=== PATIENT | male | born 1965 | race Caucasian/White ===

== ENCOUNTER 2017-04-06 10:57 | Emergency (ER) | payer BC ==
--- NOTE | ~2017-04-06 | CT2 ---
[facility]. [facility] A Service of [facility] RADIOLOGY TEXT RESULTS PATIENT: MARI WALKER LOCATION: SED : 65 UNIT #: [id number] AGE: [address]: Shay Strange MD SEX: M ORDER DR: [id number] [place] [id number] MR#: [id number] #: [id number] NAME: MARI WALKER : 1965 SEX: M STUDY DATE/TIME: 04/06/2017 12:51 UNIT: SED ROOM: STUDY DESCRIPTION: CT Abd and Pelv W Cont Attending Physician: Shay Strange M.D. Ordering Physician: Shay Strange M.D. MEDICAL IMAGING REPORT This report is preliminary unless electronic signature is present. EXAM CT abdomen and pelvis with contrast HISTORY Abdominal cramping since Monday 3 days ago. Blood in stools, lower abdominal pain. FINDINGS Axial images performed through the abdomen and pelvis following IV contrast. 100 mL Isovue-370 injected. Multiplanar reconstructions. Abdomen: Lung bases unremarkable except for minimal atelectasis. Liver, spleen and gallbladder appear normal. Pancreas, kidneys and adrenal glands unremarkable. No free air or free fluid. Stomach, small bowel unremarkable. There is a focal colonic thickening involving the sigmoid colon over at least a 12 cm length but more prominent over about a 6 cm length. There is an adjacent diverticular changes. Findings most concerning for acute diverticulitis. There is a moderate amount of pericolonic inflammatory change but no evidence of abscess. Appendix is normal. Retroperitoneum unremarkable. Pelvis: Bladder and prostate appear normal. Osseous structures and soft tissues unremarkable. IMPRESSION Focal colonic wall thickening involving the sigmoid colon over at least a 6 cm length and may involve the greater segment of close to 12 cm. In the setting of diverticular changes. Findings most concerning for acute diverticulitis. No perforation or abscess. Recommend clinical follow up to resolution. [facility] A Service of [facility] RADIOLOGY TEXT RESULTS PATIENT: MARI WALKER LOCATION: SED : 65 UNIT #: [id number] AGE: [address]: Shay Strange MD SEX: M ORDER DR: Dictated by... Debbie Quinones M.D. THIS IS AN ELECTRONICALLY VERIFIED REPORT Debbie Quinones M.D. at 04/07/2017 5:03 PM David TD: 04/06/2017 19:14 JOB #: [id number] MEDICAL IMAGING REPORT Page 1 of 1
[2017-04-06 12:07] LABS: BASOPHIL% 0.2 % (0-2.5); EOSINOPHIL% 0.2 % (0.0-7.0); HEMATOCRIT 44.2 % (38.0-50.0); HEMOGLOBIN 15.4 gm/dL (13.0-16.0); LYMPHOCYTE# 0.7 X10e3 (1.0-3.5); LYMPHOCYTE% 7.1 % (17.0-45.0); MEAN CELL VOLUME 86.4 FL (83-96); MEAN CORPUSCULAR HGB CONC 34.7 g/dL (30-36); MEAN PLATELET VOLUME 6.9 FL (6.5-11.5); MONOCYTE# 1.2 X10e3 (0-1.0); MONOCYTE% 11.2 % (3.0-12.0); NEUTROPHIL# 8.4 X10e3 (1.5-7.1); NEUTROPHIL% 81.3 % (40-75); PLATELET COUNT 227 X10e3 (140-420); RED BLOOD COUNT 5.12 X10e (3.90-5.60); RED CELL DISTRIBUTION WIDTH 12.6 % (11.0-15.5); WHITE BLOOD COUNT 10.3 X10e3 (4.0-10.5)
[2017-04-06 12:08] LABS: DIFF IND NO; MICRO INDICATED? NO; URINE APPEARANCE CLEAR; URINE BILIRUBIN NEG (NEG); URINE BLOOD NEG (NEG); URINE COLOR YELLOW; URINE GLUCOSE NEG (NORM); URINE KETONE NEG (NEG); URINE LEUKOCYTE ESTERASE NEG (NEG); URINE NITRATE NEG (NEG); URINE PH 5.5 (5-8); URINE PROTEIN NEG (NEG); URINE SOURCE CLEAN CATCH; URINE SPECIFIC GRAVITY >=1.030 (1.003-1.035)
[2017-04-06 12:30] LABS: ALBUMIN SERUM 4.2 g/dL (3.5-5.0); BILIRUBIN, DIRECT 0.1 mg/dL (0.0-0.2); BILIRUBIN,INDIRECT 1.3 mg/dL (0.0-0.9); BILIRUBIN,TOTAL 1.4 mg/dL (0.2-2.0); BUN/CREATININE RATIO 13.75; CALCIUM SERUM 8.9 mg/dL (8.4-10.2); CREATININE SERUM 0.8 mg/dL (0.6-1.4); GLOM FILT RATE Estimated 103.5 mL/min (>60); POTASSIUM 4.2 mmol/L (3.5-5.1); PROTEIN TOTAL SERUM 7.8 g/dL (6.0-8.3)
[2017-04-06 12:33] LABS: POC - CKMB <1.0 ng/mL (0.0-7.9); POC - MYOGLOBIN 56.7 ng/mL (0.0-169.0)
[2017-04-06 12:34] LABS: POC - TROPONIN <0.05 ng/mL (<=0.05)
== END 2017-04-06 15:38 | disposition home or self-care (01) ==
LOC: SED 10:57
PROVIDERS: Emergency Medicine
DX: K57.91 Diverticulosis of intestine, part unspecified, without perforation or abscess with bleeding (principal); F17.200 Nicotine dependence, unspecified, uncomplicated; Z88.5 Allergy status to narcotic agent
CPT/HCPCS: 74177; 80048; 80076; 81003; 82553; 83630; 83690; 83874; 84484; 85025; 96361; 96365; 96375; 99284; J1170; J1200; J1956; J2405; Q9967